=== PATIENT | female | born 1955 | race Caucasian/White ===

== ENCOUNTER 2018-08-31 21:30 | Inpatient (IN) | payer OTHER, MEDICAID ==
[~2018-08-31] VITALS: Ht 167.6 cm; Wt 58.3 kg
[2018-08-31 22:07] LABS: Basophils # (auto) 0 uL; Eosinophils # (auto) 0 uL; Monocytes # (auto) 0.7 uL; White Blood Cell 10.8 10^3/uL (4.4-10.8)
[2018-08-31 22:09] LABS: Basophils % (auto) 0.1 % (0.0-2.0); Hematocrit 32.3 % (36.0-46.0); Hemoglobin 10.6 g/dL (12.2-16.2); Lymphocytes # (auto) 0.4 uL; Mean Corpuscular Hemoglobin 35.1 pg (28.0-32.0); Mean Corpuscular Hgb Conc. 32.8 g/dL (32.0-36.0); Mean Corpuscular Volume 106.9 fL (80.0-100.0); Monocytes % (auto) 6.5 % (0.0-12.0); Neutrophils # (auto) 9.7 uL; Neutrophils % (auto) 89.4 % (37.0-80.0); Nucleated Red Blood Cells % 1.3 %; Platelet Count (auto) 193 10^3/uL (140-450); Red Blood Cells 3.02 10^6/uL (4.0-5.20); Red Cell Distribution Width 13.7 % (11.8-14.3)
[2018-08-31 22:25] LABS: Chloride 102 mmol/L (98-107); Potassium 4.9 mmol/L (3.5-5.1); Sodium 134 mmol/L (136-145)
[2018-08-31] MEDS ORDERED: ONDANSETRON HCL 4 MG/2 ML VIAL IV ONE (22:30)
[2018-08-31 22:31] LABS: Albumin 2.7 g/dL (3.4-5.0); Anion Gap 12 (5-15); BUN/Creatinine Ratio 30.8; Blood Urea Nitrogen 56 mg/dL (7-18); Calcium 7.6 mg/dL (8.5-10.1); Carbon Dioxide 20 mmol/L (21-32); GFR African American 36 mL/min; GFR Non-African American 30 mL/min; Glucose 146 mg/dL (74-106); Magnesium 2.4 mg/dL (1.6-2.6)
[2018-08-31 22:41] LABS: Alanine Aminotransferase 640 U/L (13-56); Alkaline Phosphatase 203 U/L (45-117); Aspartate Aminotransferase 393 U/L (15-37); Bilirubin, Total 0.4 mg/dL (0.2-1.0); Total Protein 6.6 g/dL (6.4-8.2)
[2018-08-31] MEDS ORDERED: SODIUM CHLORIDE 0.9% 1,000 ML IV ONE (23:15)
[2018-08-31] MEDS ORDERED: PROMETHAZINE HCL 25 MG/ML 1ML IV ONE (23:15)
[2018-08-31] MEDS ORDERED: FAMOTIDINE (10MG/ML) 2ML VL IV ONE (23:15)
[2018-08-31] MEDS ORDERED: methylPREDNISolone SOD SUCC 125 MG/2 ML VL IV ONE (23:15)
[2018-08-31] MEDS ORDERED: HYDROmorphone HCL 2 MG/ML VL IV ONE (23:45)
[2018-09-01] VITALS (47 sets, daily range): BP systolic 90–142; BP diastolic 49–118
[2018-09-01] MEDS ORDERED: PROMETHAZINE HCL 25 MG/ML 1ML IV ONE (00:30)
[2018-09-01] MEDS ORDERED: FUROSEMIDE 20 MG/2 ML VIAL IV ONE (03:30)
[2018-09-01] MEDS ORDERED: MORPHINE SULFATE 4 MG/ML SYR/VIAL IV PRN (06:15)
[2018-09-01] MEDS ORDERED: NITROGLYCERIN 0.4 MG SL TAB SL PRN (06:15)
[2018-09-01] MEDS ORDERED: ALBUTEROL SULF 2.5 MG/0.5ML(0.5%) NEB SOLN ONE (06:26)
[2018-09-01] MEDS ORDERED: ONDANSETRON HCL 4 MG/2 ML VIAL IV PRN (06:30)
[2018-09-01] MEDS ORDERED: ACETAMINOPHEN 325 MG TAB PO PRN (06:30)
[2018-09-01] MEDS ORDERED: METOPROLOL TARTRATE 1MG/1ML-5ML VIAL IV ONE (06:30)
[2018-09-01] MEDS ORDERED: HYDROcodone-ACET 5/325MG TAB PO PRN (06:30)
[2018-09-01] MEDS: ONDANSETRON HCL 4 MG/2 ML VIAL IV PRN (06:54)
[2018-09-01] MEDS: PANTOPRAZOLE 40 MG TAB PO SCH (07:23)
[2018-09-01] MEDS ORDERED: MULTTAB61 PO (07:39)
[2018-09-01] MEDS ORDERED: LORA-35 PO (07:39)
[2018-09-01] MEDS ORDERED: ALBUAER3 IN (07:39)
[2018-09-01] MEDS ORDERED: DOCU-94 PO (07:39)
[2018-09-01] MEDS ORDERED: IBUP800T24 PO (07:39)
[2018-09-01] MEDS ORDERED: AFAT20TA PO (07:39)
[2018-09-01] MEDS ORDERED: GABA600T PO (07:39)
[2018-09-01 08:01] LABS: Urine Bacteria FEW /hpf (None Seen); Urine Blood TRACE /uL (Negative); Urine Specific Gravity 1.022 (1.001-1.035); Urine WBC 4 /hpf (0 - 5)
[2018-09-01] MEDS: FUROSEMIDE 20 MG/2 ML VIAL IV SCH (10:00)
[2018-09-01] MEDS: GILOTRIF 40 MG PO SCH (10:00)
[2018-09-01] MEDS: ALBUTEROL SULF 2.5 MG/0.5ML(0.5%) NEB SOLN NEB PRN ×2 (10:21→14:29)
[2018-09-01] MEDS ORDERED: LIDOCAINE 2%HCL (LOCAL ANESTH.) INJ 20ML MDV ONE (10:50)
[2018-09-01] MEDS ORDERED: MIDAZOLAM HCL 1MG/1ML-2 ML VIAL ONE (10:52)
[2018-09-01] MEDS ORDERED: fentaNYL CITRATE 100 MCG/2 ML VL ONE (10:52)
[2018-09-01] MEDS ORDERED: LIDOCAINE 2%HCL (LOCAL ANESTH.) INJ 10ml MDV ONE (10:53)
[2018-09-01] MEDS ORDERED: SODIUM BICARBONATE 8.4% INJ 50ML SYRINGE ONE (10:57)
[2018-09-01] MEDS ORDERED: VANCOMYCIN 1GM/250ML 250 ML IV ONE (11:00)
[2018-09-01] MEDS ORDERED: SODIUM CHLORIDE 0.9% 250 ML IV ONE (11:00)
[2018-09-01] MEDS ORDERED: VANCOMYCIN PER PHARMACY 0 MG IV SCH (11:00)
[2018-09-01] MEDS ORDERED: SODIUM BICARBONATE 8.4 % INJ 50ML VIAL IV ONE (11:00)
[2018-09-01] MEDS ORDERED: IODIXANOL 320MG/ML 100ML BTL IV ONE (11:03)
[2018-09-01 11:40] LABS: INR 1.25 (0.9-1.15); Prothrombin Time 13.2 sec (9.27-12.13)
[2018-09-01 11:44] LABS: Albumin 2.7 g/dL (3.4-5.0); BUN/Creatinine Ratio 31.1
[2018-09-01 11:53] LABS: Bilirubin, Total 0.7 mg/dL (0.2-1.0); Total Protein 6.7 g/dL (6.4-8.2)
[2018-09-01 11:58] LABS: Potassium 5.6 mmol/L (3.5-5.1)
[2018-09-01] MEDS: PIPERACILLIN-TAZOB 3.375GM 100 ML IV SCH ×2 (12:00→17:52)
[2018-09-01] MEDS ORDERED: SODIUM POLYSTYRENE SULF 15 GM POWDER PO ONE (12:30)
[2018-09-01] MEDS ORDERED: SODIUM POLYSTYRENE SULF 15 GM POWDER ONE (13:07)
[2018-09-01] MEDS: ACETAMINOPHEN 325 MG TAB PO PRN (13:08)
[2018-09-01] MEDS ORDERED: ALBUMIN 25% 100 ML IV ONE ×2 (17:30→17:39)
[2018-09-01] MEDS ORDERED: FUROSEMIDE 40 MG/4 ML VIAL ONE (17:39)
[2018-09-01 23:13] LABS: Calcium 7.1 mg/dL (8.5-10.1)
[2018-09-01 23:17] LABS: BUN/Creatinine Ratio 30.3
[2018-09-02] VITALS (47 sets, daily range): BP systolic 84–128; BP diastolic 48–88
[2018-09-02] MEDS: PIPERACILLIN-TAZOB 3.375GM 100 ML IV SCH ×4 (00:26→18:23)
[2018-09-02 02:07] LABS: Sodium Urine 60 mmol/L (40-220)
[2018-09-02 02:16] LABS: Creatinine, Urine 33 mg/dL (30.0-125.0)
[2018-09-02 03:51] LABS: Basophils # (auto) 0 uL; Basophils % (auto) 0.3 % (0.0-2.0); Eosinophils # (auto) 0 uL; Lymphocytes # (auto) 0.4 uL; Lymphocytes % (auto) 4.2 % (10.0-50.0); Monocytes # (auto) 0.6 uL; Red Cell Distribution Width 13.2 % (11.8-14.3)
[2018-09-02 03:53] LABS: Hematocrit 25.4 % (36.0-46.0); Hemoglobin 8.6 g/dL (12.2-16.2); Mean Corpuscular Hemoglobin 35.4 pg (28.0-32.0); Mean Corpuscular Volume 104.3 fL (80.0-100.0); Monocytes % (auto) 5.6 % (0.0-12.0); Neutrophils # (auto) 9.6 uL; Neutrophils % (auto) 89.9 % (37.0-80.0); Nucleated Red Blood Cells % 1.8 %; Red Blood Cells 2.44 10^6/uL (4.0-5.20); White Blood Cell 10.7 10^3/uL (4.4-10.8)
[2018-09-02 04:07] LABS: Platelet Count (auto) 102 10^3/uL (140-450)
[2018-09-02 04:14] LABS: Albumin 2.4 g/dL (3.4-5.0); Calcium 7.2 mg/dL (8.5-10.1); Magnesium 2.3 mg/dL (1.6-2.6); Potassium 3.9 mmol/L (3.5-5.1)
[2018-09-02 04:18] LABS: BUN/Creatinine Ratio 31.6; Bilirubin, Total 0.5 mg/dL (0.2-1.0); Total Protein 5.4 g/dL (6.4-8.2)
[2018-09-02] MEDS: ALBUTEROL SULF 2.5 MG/0.5ML(0.5%) NEB SOLN NEB PRN (07:00)
[2018-09-02] MEDS: PANTOPRAZOLE 40 MG TAB PO SCH (07:40)
[2018-09-02] MEDS ORDERED: FUROSEMIDE 40 MG/4 ML VIAL IV ONE (09:00)
[2018-09-02] MEDS: FUROSEMIDE 20 MG/2 ML VIAL IV SCH (09:25)
[2018-09-02] MEDS: GILOTRIF 40 MG PO SCH (09:25)
[2018-09-02] MEDS: HYDROcodone-ACET 5/325MG TAB PO PRN (09:25)
[2018-09-02] MEDS: VANCOMYCIN 1GM/250ML 250 ML IV SCH (11:29)
[2018-09-02] MEDS ORDERED: traMADol HCL 50 MG TAB PO PRN (12:30)
[2018-09-02 14:31] LABS: Hepatitis A Ab IgM Negative; Hepatitis B Core IgM Negative; Hepatitis B Surface Antigen Negative (Negative)
[2018-09-02 14:32] LABS: Hepatitis C Antibody Negative (Negative)
[2018-09-02 16:38] LABS: % Iron Saturation 10.2 % (15-50)
[2018-09-02 16:46] LABS: Folate (Folic Acid) 8.19 ng/mL (5.38-24)
[2018-09-02] MEDS: ACETAMINOPHEN 325 MG TAB PO PRN (21:00)
[2018-09-02] MEDS: DOCUSATE SOD 100 MG CAP PO SCH (21:54)
[2018-09-02] MEDS ORDERED: diphenhdrAMINE HCL 25 MG CAP PO ONE (23:30)
[2018-09-03] VITALS (22 sets, daily range): BP systolic 95–139; BP diastolic 54–90
[2018-09-03] MEDS: PIPERACILLIN-TAZOB 3.375GM 100 ML IV SCH ×4 (00:01→19:30)
[2018-09-03 04:02] LABS: Basophils # (auto) 0 uL; Basophils % (auto) 0.2 % (0.0-2.0); Eosinophils # (auto) 0 uL; Eosinophils % (auto) 0.2 % (0.0-7.0); Hemoglobin 10.1 g/dL (12.2-16.2); Mean Corpuscular Volume 103.8 fL (80.0-100.0)
[2018-09-03 04:05] LABS: Hematocrit 29.6 % (36.0-46.0); Lymphocytes # (auto) 0.6 uL; Lymphocytes % (auto) 6.9 % (10.0-50.0); Mean Corpuscular Hemoglobin 35.3 pg (28.0-32.0); Monocytes # (auto) 0.5 uL; Monocytes % (auto) 5.2 % (0.0-12.0); Neutrophils # (auto) 7.8 uL; Neutrophils % (auto) 87.5 % (37.0-80.0); Nucleated Red Blood Cells % 0.6 %; Red Blood Cells 2.85 10^6/uL (4.0-5.20); Red Cell Distribution Width 13.4 % (11.8-14.3)
[2018-09-03 04:17] LABS: Platelet Count (auto) 96 10^3/uL (140-450)
[2018-09-03 04:23] LABS: Albumin 2.3 g/dL (3.4-5.0)
[2018-09-03 04:24] LABS: BUN/Creatinine Ratio 30.5
[2018-09-03 04:27] LABS: Bilirubin, Total 0.6 mg/dL (0.2-1.0); Total Protein 5.6 g/dL (6.4-8.2)
[2018-09-03 04:28] LABS: Potassium 2.8 mmol/L (3.5-5.1)
[2018-09-03] MEDS: POTASSIUM CHL 20MEQ/100ML 100 ML IV SCH ×4 (05:37→20:00)
[2018-09-03] MEDS: PANTOPRAZOLE 40 MG TAB PO SCH (08:32)
[2018-09-03] MEDS: DOCUSATE SOD 100 MG CAP PO SCH ×2 (09:52→22:27)
[2018-09-03] MEDS: GILOTRIF 40 MG PO SCH (09:52)
[2018-09-03] MEDS: FUROSEMIDE 20 MG/2 ML VIAL IV SCH (09:52)
[2018-09-03] MEDS: SODIUM FERR GLUC 62.5MG/5ML 125 MG in SODIUM CHL 0.9% 100 ML IV SCH (12:00)
[2018-09-03 12:31] LABS: Potassium 2.7 mmol/L (3.5-5.1)
[2018-09-03 15:21] LABS: Folate (Folic Acid) 8.09 ng/mL (5.38-24)
[2018-09-03] MEDS: HYDROcodone-ACET 5/325MG TAB PO PRN (15:36)
[2018-09-03] MEDS: ALBUTEROL SULF 2.5 MG/0.5ML(0.5%) NEB SOLN NEB PRN ×2 (19:49→23:29)
[2018-09-03] MEDS: ASCORBIC ACID 500 MG TAB PO SCH (22:27)
[2018-09-03] MEDS: POTASSIUM CHL 20 Meq TABLET PO SCH (22:28)
[2018-09-04] VITALS (22 sets, daily range): BP systolic 101–142; BP diastolic 51–99
[2018-09-04] MEDS: PIPERACILLIN-TAZOB 3.375GM 100 ML IV SCH ×4 (00:23→17:54)
[2018-09-04 03:51] LABS: Basophils # (auto) 0 uL; Eosinophils # (auto) 0 uL; Lymphocytes # (auto) 0.5 uL; Monocytes # (auto) 0.4 uL; White Blood Cell 9.2 10^3/uL (4.4-10.8)
[2018-09-04 03:53] LABS: Basophils % (auto) 0.3 % (0.0-2.0); Eosinophils % (auto) 0.4 % (0.0-7.0); Hematocrit 29.8 % (36.0-46.0); Hemoglobin 10.2 g/dL (12.2-16.2); Lymphocytes % (auto) 5.5 % (10.0-50.0); Mean Corpuscular Hemoglobin 35.4 pg (28.0-32.0); Mean Corpuscular Hgb Conc. 34.1 g/dL (32.0-36.0); Mean Corpuscular Volume 103.8 fL (80.0-100.0); Monocytes % (auto) 4.4 % (0.0-12.0); Neutrophils # (auto) 8.2 uL; Neutrophils % (auto) 89.4 % (37.0-80.0); Nucleated Red Blood Cells % 0.9 %; Red Blood Cells 2.87 10^6/uL (4.0-5.20); Red Cell Distribution Width 13.8 % (11.8-14.3)
[2018-09-04 03:55] LABS: Platelet Count (auto) 101 10^3/uL (140-450)
[2018-09-04 04:09] LABS: BUN/Creatinine Ratio 26.2; Calcium 7.3 mg/dL (8.5-10.1); Potassium 3.1 mmol/L (3.5-5.1)
[2018-09-04] MEDS: POTASSIUM CHL 20MEQ/100ML 100 ML IV SCH ×2 (06:47→10:17)
[2018-09-04] MEDS: PANTOPRAZOLE 40 MG TAB PO SCH (06:54)
[2018-09-04] MEDS: HYDROcodone-ACET 5/325MG TAB PO PRN ×2 (08:25→17:57)
[2018-09-04] MEDS: ONDANSETRON HCL 4 MG/2 ML VIAL IV PRN (08:26)
[2018-09-04] MEDS: DOCUSATE SOD 100 MG CAP PO SCH ×2 (10:00→22:03)
[2018-09-04] MEDS: ASCORBIC ACID 500 MG TAB PO SCH ×2 (10:00→22:03)
[2018-09-04] MEDS ORDERED: GILOTRIF PO SCH (10:00)
[2018-09-04] MEDS: FUROSEMIDE 20 MG/2 ML VIAL IV SCH (10:17)
[2018-09-04] MEDS: POTASSIUM CHL 20 Meq TABLET PO SCH ×2 (10:18→22:03)
[2018-09-04] MEDS ORDERED: POTA20TA53 PO (11:30)
[2018-09-04] MEDS: VANCOMYCIN 1GM/250ML 250 ML IV SCH (11:58)
[2018-09-04] MEDS: SODIUM FERR GLUC 62.5MG/5ML 125 MG in SODIUM CHL 0.9% 100 ML IV SCH (12:00)
[2018-09-04] MEDS: ALBUTEROL SULF 2.5 MG/0.5ML(0.5%) NEB SOLN NEB PRN (18:24)
[2018-09-05] MEDS ORDERED: VANCOMYCIN 1GM/250ML 250 ML IV SCH (11:00)
[2018-09-05] MEDS ORDERED: VANCOMYCIN 750 MG in D5W 5% 250 ML IV ONE (15:00)
== END 2018-09-05 00:14 | disposition short-term general hospital, planned readmission (82) | DRG 314 ==
LOC: ER 21:38 → OVERFLOW 21:39 → ICU WEST 09-01 07:38
PROVIDERS: ADMIT Nurse Practitioner; ATTEND Hospitalist
PROC: 5A09357 Assistance with Respiratory Ventilation, Less than 24 Consecutive Hours, Continuous Positive Airway Pressure (ICD-10-PCS; 2018-08-31)
PROC: 0W9D3ZZ Drainage of Pericardial Cavity, Percutaneous Approach (ICD-10-PCS; principal; 2018-09-01)
PROC: 0W9B3ZZ Drainage of Left Pleural Cavity, Percutaneous Approach (ICD-10-PCS; 2018-09-02)
DX: I31.3 Pericardial effusion (noninflammatory) (principal); K72.00 Acute and subacute hepatic failure without coma; I50.31 Acute diastolic (congestive) heart failure; N17.0 Acute kidney failure with tubular necrosis; E43 Unspecified severe protein-calorie malnutrition; C34.91 Malignant neoplasm of unspecified part of right bronchus or lung; I13.0 Hypertensive heart and chronic kidney disease with heart failure and stage 1 through stage 4 chronic kidney disease, or unspecified chronic kidney disease; J44.1 Chronic obstructive pulmonary disease with (acute) exacerbation; R64 Cachexia; E87.2 Acidosis; D61.818 Other pancytopenia; I82.412 Acute embolism and thrombosis of left femoral vein; J98.11 Atelectasis; J91.0 Malignant pleural effusion; I31.4 Cardiac tamponade; N18.9 Chronic kidney disease, unspecified; E87.6 Hypokalemia; I50.82 Biventricular heart failure; D63.0 Anemia in neoplastic disease; K76.0 Fatty (change of) liver, not elsewhere classified; K76.1 Chronic passive congestion of liver; Z80.1 Family history of malignant neoplasm of trachea, bronchus and lung; R09.02 Hypoxemia; Z80.3 Family history of malignant neoplasm of breast; Z90.710 Acquired absence of both cervix and uterus; Z85.3 Personal history of malignant neoplasm of breast; Z68.20 Body mass index [BMI] 20.0-20.9, adult
CPT/HCPCS: 10022; 32555; 33010; 36415; 36600; 51702; 71045; 71250; 74176; 76604; 76705; 76930; 76942; 80048; 80053; 80074; 80202; 81001; 82570; 82607; 82746; 82805; 83540; 83550; 83735; 83880; 83986; 84132; 84133; 84300; 84484; 85025; 85610; 87081; 87205; 89051; 93306; 93970; 94640; 94660; 96365; 96367; 96375; 99152; A6257; G0378; J2001; J2250; J2405; J2543; J3480; J3490; P9047; Q9967

== ENCOUNTER 2018-09-16 12:47 | Emergency (ER) | payer OTHER, MEDICAID ==
[~2018-09-16] VITALS: Ht 170.2 cm; Wt 51.7 kg
[~2018-09-16 12:47] MED LIST: AFAT20TA PO; ALBUAER3 IN; DOCU-94 PO; GABA600T PO; IBUP800T24 PO; LORA-35 PO; MULTTAB61 PO; POTA20TA53 PO
[2018-09-16 14:03] LABS: Basophils # (auto) 0 uL; Eosinophils # (auto) 0.1 uL; Hematocrit 28.1 % (36.0-46.0); Lymphocytes # (auto) 0.4 uL; Monocytes # (auto) 0.5 uL; Red Blood Cells 2.66 10^6/uL (4.0-5.20)
[2018-09-16 14:05] LABS: Basophils % (auto) 0.6 % (0.0-2.0); Eosinophils % (auto) 1.8 % (0.0-7.0); Hemoglobin 9.2 g/dL (12.2-16.2); Lymphocytes % (auto) 6.5 % (10.0-50.0); Mean Corpuscular Hemoglobin 34.5 pg (28.0-32.0); Mean Corpuscular Hgb Conc. 32.6 g/dL (32.0-36.0); Mean Corpuscular Volume 105.7 fL (80.0-100.0); Neutrophils # (auto) 5.6 uL; Neutrophils % (auto) 84.1 % (37.0-80.0); Platelet Count (auto) 346 10^3/uL (140-450); Red Cell Distribution Width 14.8 % (11.8-14.3); White Blood Cell 6.6 10^3/uL (4.4-10.8)
[2018-09-16 14:19] LABS: BUN/Creatinine Ratio 19.5; Calcium 8.1 mg/dL (8.5-10.1); Potassium 3.9 mmol/L (3.5-5.1)
[2018-09-16 14:21] LABS: Bilirubin, Total 0.3 mg/dL (0.2-1.0); Total Protein 6.9 g/dL (6.4-8.2)
[2018-09-16 14:34] LABS: Magnesium 1.9 mg/dL (1.6-2.6)
[2018-09-16] MEDS ORDERED: MORPHINE SULFATE 4 MG/ML SYR/VIAL IV ONE (14:45)
[2018-09-16] MEDS ORDERED: HYDROcodone-ACET 10/325MG TAB PO ONE (15:00)
[2018-09-16] MEDS ORDERED: HYDROcodone-ACET 5/325MG TAB PO ONE (15:00)
[2018-09-16] MEDS ORDERED: IPRATROPIUM BROM 0.5 MG/2.5ML INH SOL NEB SCH (16:00)
[2018-09-16] MEDS ORDERED: FUROSEMIDE 40 MG/4 ML VIAL IV ONE (16:00)
[2018-09-16] MEDS ORDERED: ALBUTEROL SULF 2.5 MG/0.5ML(0.5%) NEB SOLN NEB SCH (16:00)
[2018-09-16] MEDS ORDERED: MAGIC MT (16:19)
[2018-09-16] MEDS ORDERED: IPRA1SOL3 IN (16:19)
[2018-09-16] MEDS ORDERED: FURO40TA PO (16:19)
[2018-09-16 16:23] LABS: INR 1.08 (0.9-1.15); Partial Thromboplastin Time 35.5 sec (23.78-33.04); Prothrombin Time 11.5 sec (9.27-12.13)
[2018-09-16 16:45] VITALS: BP 119/81
== END 2018-09-16 17:07 | disposition home or self-care (01) ==
LOC: EDBD 12:47 → EDSEX 12:47 → ER 12:47
DX: R06.03 Acute respiratory distress (principal); J90 Pleural effusion, not elsewhere classified; C34.90 Malignant neoplasm of unspecified part of unspecified bronchus or lung; J44.9 Chronic obstructive pulmonary disease, unspecified; I10 Essential (primary) hypertension; Z90.710 Acquired absence of both cervix and uterus
CPT/HCPCS: 36415; 71045; 76604; 80053; 83735; 83880; 84484; 85025; 85610; 85730; 93005; 93306; 94640; 94761; 96374; 99285; J1940; J7611; J7644